=== PATIENT | female | born 1970 | race Caucasian/White ===

== ENCOUNTER → 2016-05-13 | Outpatient (CLI) | payer MEDICAID ==
[~2016-05-13] MED LIST: BUPR150T9 PO; BUSP5POW; CETI10CA PO; CLIN-79 PO; CLON0.5T3; CODE473S2 PO; DICY10CA12 PO; ESCI10TA PO; ESCI20TA; ESCI20TA PO; FLUO20CA42 PO; HYDR-3702 PO; LORA0.5T PO; MELO-249 PO; METH4TAB; METR500T17 PO; MULT-954 PO; NAPR500T; OMEP20CA6 PO; ONDA4TAB8 PO; ONDAN4ODT PO; PHEN-725 PO; PRM25T PO; RIVA10TA2 PO; RSP.25T GT; RSP2T GT; SMTR50T; SULF-221 PO; SULF1TAB35 PO; SUMA100T3 PO; TOPI100T38 PO; TOPI50TA37 PO; TOPI50TA5 PO; TRAM-25 PO; TRAZ100T92; TRM50T PO; VENL75CA86 PO; motrin; mucinex
[2016-05-13 11:20] LABS: BASOPHILS % (AUTO) 1 % (0-2); EOSINOPHILS # (AUTO) 0.1 10^3uL; EOSINOPHILS % (AUTO) 2 % (0-4); LYMPHOCYTES # (AUTO) 1.2 X10^3; MEAN CORPUSCULAR HEMOGLOBIN 30.5 PG (26.0-34.0); MEAN CORPUSCULAR HGB CONC 34.8 g/dL (31.0-37.0); MEAN CORPUSCULAR VOLUME 88 FL (80-100); MEAN PLATELET VOLUME 11.2 FL (6.0-9.5); MONOCYTES # (AUTO) 0.4 X10^3; MONOCYTES % (AUTO) 10 % (3-11); NEUTROPHILS # (AUTO) 2.3 X10^3; NEUTROPHILS % (AUTO) 57 % (51-67); PLATELET COUNT 179 10^3uL (150-450); WHITE BLOOD COUNT 4.06 10^3uL (4.0-11.0)
[2016-05-13 11:40] LABS: BILIRUBIN,URINE Negative (Negative); CLARITY,URINE Clear; COLOR,URINE Yellow; GLUCOSE, URINE (UA) Negative (Negative); LEUKOCYTE ESTERASE, URINE Negative (Negative); UROBILINOGEN,URINE 0.2 mg/dL (0.2-1.0)
[2016-05-13 11:51] LABS: URINE CENTRIFUGED VOLUME 12 mL
[2016-05-13 11:53] LABS: ALBUMIN 4.4 g/dL (3.4-5.0); ANION GAP 16.5 MEQ/L (3-15); MAGNESIUM* 2.1 mg/dL (1.6-2.3); PHOSPHORUS 3.2 mg/dL (2.4-4.9)
--- NOTE | 2016-05-13 18:11 | Diagnostic Imaging Report ---
INDICATION: Ankle pain. COMPARISON: None available. TECHNIQUE: 3 radiographs of left ankle dated May 13, 2016. FINDINGS: No acute fracture or dislocation. No destructive osseous process. Talar dome is unremarkable. Ankle mortise is symmetric. Small posterior calcaneal enthesophyte. No suspicious radiopaque foreign body. IMPRESSION: No acute osseous abnormality with additional findings as above. Dictated by: Dictated on workstation # [id number]
== END ==
LOC: RAD 11:06
PROVIDERS: ATTEND Physician Assistant
DX: M25.572 Pain in left ankle and joints of left foot (principal); Q61.2 Polycystic kidney, adult type; I10 Essential (primary) hypertension; E83.39 Other disorders of phosphorus metabolism; E55.9 Vitamin D deficiency, unspecified
CPT/HCPCS: 36415; 73610; 80069; 81003; 81015; 82306; 83735; 83970; 84550; 85025

== ENCOUNTER 2016-05-22 08:55 | Emergency (ER) | payer MEDICAID ==
[~2016-05-22] VITALS: Ht 154.9 cm; Wt 82.0 kg
[2016-05-22] MEDS ORDERED: KETOROLAC 60 MG/2 ML (TORADOL) VIAL IM ONE (09:35)
[2016-05-22 09:43] VITALS: BP 158/81
== END 2016-05-22 09:46 | disposition home or self-care (01) ==
LOC: EDUNIT# 08:55 → ED 08:57
DX: J01.10 Acute frontal sinusitis, unspecified (principal)
CPT/HCPCS: 96372; 99282; J1885; 99283

== ENCOUNTER → 2016-07-07 | Outpatient (CLI) | payer MEDICAID | LOC: RAD 12:47 | PROVIDERS: ATTEND Physician Assistant Medical | DX: Z12.31 Encounter for screening mammogram for malignant neoplasm of breast (principal) ==